=== PATIENT | female | born 2005 | race Caucasian/White ===

== ENCOUNTER → 2025-01-14 13:43 | Outpatient (REF) | payer OTHER, SELFPAY | LOC: PAVMRI 13:43 | PROVIDERS: ATTENDING PHYSICIAN Dentist Oral and Maxillofacial Surgery; FAMILY PHYSICIAN Family Medicine | DX: M26.623 Arthralgia of bilateral temporomandibular joint (principal) | CPT/HCPCS: 70336 ==